=== PATIENT | female | born 1975 | race African-American/Black ===

== ENCOUNTER 2018-08-01 10:29 | Emergency (ER) | payer OTHER ==
[~2018-08-01] VITALS: Ht 162.6 cm; Wt 68.9 kg
[2018-08-01 14:25] LABS: Basophils # (auto) 0 uL; Basophils % (auto) 0.2 % (0.0-2.0); Eosinophils # (auto) 0 uL; Eosinophils % (auto) 0.3 % (0.0-7.0); Hematocrit 44.2 % (36.0-46.0); Hemoglobin 14.5 g/dL (12.2-16.2); Lymphocytes # (auto) 0.7 uL; Lymphocytes % (auto) 6.9 % (10.0-50.0); Mean Corpuscular Hemoglobin 31.2 pg (28.0-32.0); Mean Corpuscular Hgb Conc. 32.9 g/dL (32.0-36.0); Monocytes # (auto) 0.8 uL; Monocytes % (auto) 7.2 % (0.0-12.0); Neutrophils % (auto) 85.4 % (37.0-80.0); Platelet Count (auto) 267 10^3/uL (140-450); Red Blood Cells 4.66 10^6/uL (4.0-5.20); Red Cell Distribution Width 13.5 % (11.8-14.3); White Blood Cell 10.5 10^3/uL (4.4-10.8)
[2018-08-01 14:50] LABS: Albumin 3.8 g/dL (3.4-5.0); BUN/Creatinine Ratio 10.3; Bilirubin, Total 0.7 mg/dL (0.2-1.0); Calcium 9.1 mg/dL (8.5-10.1); Total Protein 8.2 g/dL (6.4-8.2)
[2018-08-01] MEDS ORDERED: ACYCLOVIR SOD 50MG/ML 800 MG in SODIUM CHL 0.9% 250 ML IV ONE (16:45)
[2018-08-01] MEDS ORDERED: cefTRIAXone 1GM/50ML D5W 50 ML IV ONE (16:45)
[2018-08-01 17:02] VITALS: BP 119/68
[2018-08-01] MEDS ORDERED: HYDROcodone-ACET 7.5/325MG TAB PO ONE (18:00)
== END 2018-08-01 22:01 | disposition home or self-care (01) ==
LOC: ER 10:29
DX: L03.211 Cellulitis of face (principal); B00.9 Herpesviral infection, unspecified; N39.0 Urinary tract infection, site not specified; K50.90 Crohn's disease, unspecified, without complications; L51.3 Stevens-Johnson syndrome-toxic epidermal necrolysis overlap syndrome
CPT/HCPCS: 36415; 70486; 70490; 80053; 81002; 81025; 85025; 87070; 87880; 96365; 96366; 96367; 99284; J0133; J0696; J7050

== ENCOUNTER 2021-11-29 03:20 | Emergency (ER) | payer OTHER ==
[~2021-11-29] VITALS: Ht 162.6 cm; Wt 77.1 kg
[2021-11-29] MEDS ORDERED: HYDROcodone-ACET 5/325MG TAB PO ONE (04:15)
[2021-11-29] MEDS ORDERED: IBUPROFEN 800 MG TAB PO ONE (04:15)
[2021-11-29] MEDS ORDERED: IBUP800T27 PO (05:13)
[2021-11-29] MEDS ORDERED: diazePAM 5 MG TAB PO ONE (05:30)
[2021-11-29] MEDS ORDERED: LORazepam 2MG/ML-1ML VIAL IV ONE ×2 (05:45→06:30)
[2021-11-29] MEDS ORDERED: ETOMIDATE (2MG/ML) 20ML VIAL IV ONE ×2 (08:38→08:45)
[2021-11-29 11:05] VITALS: BP 116/89
== END 2021-11-29 12:10 | disposition home or self-care (01) ==
LOC: ER 03:20 → EDBD 03:20 → ER 12:10
DX: S83.005A Unspecified dislocation of left patella, initial encounter (principal); W01.0XXA Fall on same level from slipping, tripping and stumbling without subsequent striking against object, initial encounter; Y93.89 Activity, other specified; Y92.89 Other specified places as the place of occurrence of the external cause; Y99.8 Other external cause status
CPT/HCPCS: 27560; 73560; 73590; 96374; 99285; J2060